=== PATIENT | male | born 1995 | race African-American/Black ===

== ENCOUNTER 2019-10-20 10:30 | Emergency (ER) | payer OTHER, SELFPAY ==
--- NOTE | 2019-10-20 10:27 | ED.SYNCOPE ---
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 He states that he was walking around work when he began to feel anxious and had a pressure come over him , he then began to have SOB and a panic attack. He reports that he walked to the back and asked for a outpatient coding specialist when he had a syncopal episode for a couple seconds. He notes that after he woke up that his symptoms had resolved, but that he spit up some pink phlegm which worried him. He also notes that he hasn't eaten yet today and that he has a hx of panic attacks. He denies any mouth pain, SILVER, epistaxis, nose pain, back pain, CP, or neck pain. MD complaint: loss of consciousness Onset (ago): minute(s) -: second(s) (a few) Prodromal symptoms: shortness of breath and other (anxious, had a pressure come over him , and had a panic attack) Context: other (while walking around work) Injuries sustained associated with event: none Current symptoms: other (spit up pink phlegm) History: other (anxiety with panic attacks) Related Data Home Medications Medication Instructions Recorded Confirmed No Home Medications 10/20/19 10/20/19 Allergies Allergy/AdvReac Type Severity Reaction Status Date / Time No Known Allergies Allergy Verified 10/20/19 10:38 Review of Systems Review of Systems: All systems reviewed & are unremarkable except as noted in HPI and below ENT: Denies epistaxis, Denies mouth pain, Denies nose pain and Reports other (spit up pink phlegm) Cardiovascular: Cardiovascular: Denies chest pain Respiratory: Respiratory: Reports dyspnea (resolved) Musculoskeletal: Musculoskeletal: Denies back pain and Denies neck pain Neurologic: Reports syncope (for a few seconds - resolved) and Denies headache(s) Psychiatric: Psychiatric: Reports anxiety (resolved), Reports panic attacks (resolved) and Reports other (had a pressure come over him - resolved) [facility] Past Medical History Medical History (Updated 10/20/19 @ 11:47 by Sanaz Luong MD) Anxiety Panic attacks Surgical History Surgical History (Updated 10/20/19 @ 11:03 by Harsh Christopher) No history of previous surgery Social History Social History (Updated 10/20/19 @ 11:03 by Harsh hCristopher) Smoking status: Former smoker Substance use: current Substance use type: marijuana Exam Const: General: cooperative, no acute distress and alert Nutritional Appearance: well nourished Orientation/consciousness: patient oriented x3 Limitations: no limitations HENMT: Mouth: Yes lip normal and Yes moist mucous membranes Resp: Effort & Inspection: normal respiratory effort Auscultation: clear to auscultation bilaterally Cardio: Rate: regular rate Rhythm: regular rhythm GI: GI Palp: Yes Soft to palpation and No Tenderness to palpation present (GI) Auscultation: normal bowel sounds Skin: General skin exam: normal color Neuro: General: patient oriented x3 Cognition (Neuro): normal cognition Speech: normal speech Extrem: General: normal to inspection, full ROM and no clubbing, cyanosis or edema Psych: Mental Status: mental status grossly normal Affect: normal affect Attitude: cooperative Course Course Emergency Course: Patient with normal examination and normal vitals in the emergency department. Patient with prior history of panic attacks. Patient with symptoms of hyperventilation immediately preceding his syncopal episode. Patient appropriate for discharge home and ongoing outpatient care. Vital Signs Vital signs: Vital Signs Pulse Rate 75 10/20/19 10:35 Respiratory Rate 16 10/20/19 10:35 Blood Pressure 131/87 10/20/19 10:35 Pulse Oximetry 97 10/20/19 10:35 Pulse Rate 75
[2019-10-20 10:35] VITALS: BP 131/87; PULSE 75; RESP 16; O2SAT 97
[2019-10-20 11:44] VITALS: BP 112/65; PULSE 76; RESP 20; O2SAT 100
[2019-10-20 12:14] VITALS: BP 127/68; PULSE 93; RESP 20; O2SAT 100
== END 2019-10-20 12:18 | disposition home or self-care (01) ==
PROVIDERS: Emergency Provider Emergency Medicine
DX: R06.4 Hyperventilation (principal); R55 Syncope and collapse; F41.0 Panic disorder [episodic paroxysmal anxiety]; Z87.891 Personal history of nicotine dependence
CPT/HCPCS: 99281

== ENCOUNTER 2019-12-15 06:34 | Emergency (ER) | payer OTHER, SELFPAY ==
[2019-12-15 06:43] VITALS: BP 118/77; PULSE 68; RESP 19; TEMP 36.6; O2SAT 99
[2019-12-15 07:06] LABS: Basophils Absolute Auto 0.1 K/mm3 (0.0-0.1); Basophils Percent Auto 0.9 % (0.2-1.2); Eosinophils Absolute Auto 0.1 K/mm3 (0-0.3); Eosinophils Percent Auto 1.7 % (0-4.4); Hematocrit 48.4 % (42.0-52.0); Hemoglobin 15.7 g/dL (14.0-18.0); Immature Granulocyte Absolute 0.02 K/mm3 (0.00-0.031); Immature Granulocyte Percent A 0.4 % (0-0.5); Lymphocytes Percent Auto 33.9 % (18.3-44.2); Mean Corpuscular HGB Conc 32.4 g/dl (32-36); Mean Corpuscular Hemoglobin 29.8 pg (26-34); Mean Platelet Volume 9.8 fl (7.4-10.4); Monocytes Absolute Auto 0.5 K/mm3 (0.1-0.6); Neutrophils Absolute Auto 2.8 K/mm3 (1.3-6.7); Neutrophils Percent Auto 53.1 % (45.5-73.1); Platelet Count Result 204 k/mm3 (150-375); Red Blood Count 5.26 M/mm3 (4.6-6.20); Red Cell Distribution Width 14.1 % (11.5-14.5); White Blood Count 5.3 K/mm3 (4.5-10.0)
[2019-12-15 07:13] VITALS: BP 116/74; PULSE 53; RESP 30; O2SAT 100
[2019-12-15 07:17] LABS: Blood Urea Nitrogen 11 mg/dL (9-20); Calcium 9.4 mg/dL (8.4-10.2); Carbon Dioxide 28 mmol/L (22-30); Chloride 105 mmol/L (98-107); Estimated CRCL calculation 137 ml/min; Estimated Glomerular Filt Rate > 60; Glucose 91 mg/dL (75-110); Potassium 4.3 mmol/L (3.4-5.0); Sodium 138 mmol/L (137-145)
--- NOTE | 2019-12-15 07:18 | ED.GENADULT ---
HPI - General Adult General Chief complaint: Anxiety Stated complaint: PANIC, N/V, SOB Time Seen by Provider: 12/15/19 06:40 Source: patient and family Mode of arrival: ambulatory Limitations: no limitations History of Present Illness HPI narrative: 24-year-old with no major medical problems presents to the ER with complaints of nausea vomiting followed by panic attack patient states that he ate a large of junk food last night woke up this morning with stomach upset followed by nausea and vomiting. However his girlfriend reports that he has been throwing up quite frequently. He presently denies any chest pain, shortness of breath, abdominal pain. Onset (ago): hour(s) (1) Severity: moderate Quality: aching Pain Consistency: now resolved Relieving factors: none Exacerbating factors: none Associated symptoms: denies other symptoms Related Data Home Medications Medication Instructions Recorded Confirmed ondansetron 12/15/19 Allergies Allergy/AdvReac Type Severity Reaction Status Date / Time No Known Allergies Allergy Verified 12/15/19 06:49 Review of Systems Review of Systems: All systems reviewed & are unremarkable except as noted in HPI and below Constitutional: Constitutional: Reports no additional constitutional complaints Eyes: Eyes: Reports no additional eye complaints ENT: Reports system reviewed and no additional complaints, except as documented Cardiovascular: Cardiovascular: Reports no additional cardiovascular complaints Respiratory: Respiratory: Reports no additional respiratory complaints Gastrointestinal: Gastrointestinal: Reports abdominal pain, Reports nausea and Reports vomiting Genitourinary: Genitourinary: Reports no additional male genitourinary complaints Musculoskeletal: Musculoskeletal: Reports no additional musculoskeletal complaints Neurologic: Reports system reviewed and no additional complaints, except as documented PMFSH Past Medical History Medical History Anxiety Panic attacks Surgical History Surgical History (Updated 10/20/19 @ 11:03 by Harsh Christopher) No history of previous surgery Social History Social History (Updated 10/20/19 @ 11:03 by Harsh Christopher) Smoking status: Former smoker Substance use: current Substance use type: marijuana Exam Narrative: Exam Narrative: GENERAL: Well-appearing, well-nourished, and in no acute distress. HEAD: Normocephalic, atraumatic. EYES: PERRLA and EOMI. ENT: Nares clear, Mucous membranes moist. NECK: Supple. CHEST: Clear to auscultation. No respiratory distress. HEART: Regular rate and rhythm. No murmur heard. Normal peripheral pulses. ABDOMEN: Soft, non tender, non distended, normal active bowel sounds. EXTREMITIES: Normal range of motion. No edema. SKIN: Warm, dry, no rash. NEURO: No focal deficits. Alert and oriented x3. PSYCH: Normal mood and affect. Course Course Emergency Course: Upon arrival patient was asymptomatic however since patient was complaining of recurrent nausea and vomiting heart rate do CBC and chemistry which came back unremarkable. Advised him to be strict with his diet continue Zofran as needed and follow-up with his primary doctor Vital Signs Vital signs: Vital Signs Temperature 36.6 C 12/15/19 06:43 Pulse Rate 68 12/15/19 06:43 Respiratory Rate 19 12/15/19 06:43 Blood Pressure 118/77 12/15/19 06:43 Pulse Oximetry 99 12/15/19 06:43 Temperature 36.6 C 12/15/19 06:43 Pulse Rate 53 L 12/15/19 07:13 Respiratory Rate 30 H 12/15/19 07:13 Blood Pressure 116/74 12/15/19 07:13 Pulse Oximetry 100 12/15/19 07:13 Medical Decision Making Vital Signs Vital Signs: Vital Signs Temperature 36.6 C 12/15/19 06:43 Pulse Rate 68 12/15/19 06:43 Respiratory Rate 19 12/15/19 06:43 Blood Pressure 118/77 12/15/19 06:43 Pulse Oximetry 99 12/15/19 06:43 Temperature 36.6 C 12/15/19 06:43 P
[2019-12-15 08:10] VITALS: BP 116/64; PULSE 53; RESP 28; O2SAT 100
== END 2019-12-15 08:11 | disposition home or self-care (01) ==
LOC: ANHED 07:56
PROVIDERS: Emergency Provider Family Medicine
DX: F41.9 Anxiety disorder, unspecified (principal); Z87.891 Personal history of nicotine dependence
CPT/HCPCS: 36415; 80048; 85025; 99283

== ENCOUNTER 2020-09-18 21:18 | Emergency (ER) | payer OTHER, SELFPAY ==
[2020-09-18 21:26] VITALS: BP 132/64; PULSE 64; RESP 18; TEMP 36.9; O2SAT 100
--- NOTE | 2020-09-18 22:52 | ED.EYEPROB ---
HPI - Eye Problem General Chief complaint: Eye Problems Stated complaint: chemical burn in eye Time Seen by Provider: 09/18/20 21:58 Source: patient Mode of arrival: ambulatory Limitations: no limitations History of Present Illness HPI Narrative: Patient is a 24-year-old male who presents complaining of right eye pain. He reports while at work this evening he had [employer] splash into eye as he was moving boxes. Eye was flushed at eye was station at work for 15 minutes per MDS. Patient continues to report irritation, denies visual changes or difficulties. Related Data Allergies Allergy/AdvReac Type Severity Reaction Status Date / Time No Known Allergies Allergy Verified 09/18/20 21:29 Review of Systems Review of Systems: Narrative: CONSTITUTIONAL: Denies fever, chills, or sweats. EYES: Right eye pain and irritation ENT: Denies rhinorrhea, congestion, sore throat, or otalgia. CARDIOVASCULAR: Denies chest pain, palpitations, or edema. RESPIRATORY: Denies cough or dyspnea. GASTROINTESTINAL: Denies abdominal pain, nausea, vomiting, or diarrhea. GENITOURINARY: Denies dysuria or hematuria. SKIN: Denies rash or itching. MUSCULOSKELETAL: Denies back pain, joint pain, or myalgia. NEUROLOGIC: Denies headache, numbness, dizziness, or weakness. PSYCHIATRIC: Denies anxiety or depression. PMFSH Past Medical History Medical History Anxiety Panic attacks Surgical History Surgical History No history of previous surgery Family History Family History Other No significant family history Social History Social History Smoking status: Former smoker Substance use: current Substance use type: marijuana Gender identity (if verbalized by the patient): Male Comments At the time of signature, I have reviewed and agree with nursing past medical, surgical, social, and family history unless otherwise noted. Please see nursing chart for further information. There is no relevant family history pertinent to the presenting complaint. Exam Narrative: Exam Narrative: GENERAL: Well-appearing, well-nourished, and in no acute distress. HEAD: Normocephalic, atraumatic. EYES: EOMI. sclera mildly injected, conjunctiva normal. ENT: Mucous membranes pink and moist. CHEST: No respiratory distress. HEART: Regular rate and rhythm. EXTREMITIES: Normal range of motion. SKIN: Warm, dry, no rash. NEURO: No focal deficits. Alert and oriented x3. Gait steady. PSYCH: Normal affect. No signs of depression or anxiety. Course Vital Signs Vital signs: Vital Signs Temperature 36.9 C 09/18/20 21:26 Pulse Rate 64 09/18/20 21:26 Respiratory Rate 18 09/18/20 21:26 Blood Pressure 132/64 09/18/20 21:26 Pulse Oximetry 100 09/18/20 21:26 Temperature 36.9 C 09/18/20 21:26 Pulse Rate 64 09/18/20 21:26 Respiratory Rate 18 09/18/20 21:26 Blood Pressure 132/64 09/18/20 21:26 Pulse Oximetry 100 09/18/20 21:26 Reviewed. Patient has been instructed to follow-up with his PCP regarding his blood pressure. Procedures Other Procedure Procedure 1: Other Procedure: Right eye was anesthetized with 1 drop of tetracaine and anesthesia was achieved. The eye was flushed with eyewash. Cornea was dyed with fluorescein and 1 small abrasions or ulcerations were noted. Patient tolerated procedure well. MDM - Eye Problem MDM Narrative Medical decision making narrative: Patient appears to have small corneal abrasion to right eye. Patient encouraged to follow-up with ophthalmology tomorrow. Patient started on erythromycin ointment and instructed on when to return to the emergency department. Patient is stable for discharge home with outpatient follow-up as discussed. Differential Diagnosis Differentia
== END 2020-09-18 23:12 | disposition home or self-care (01) ==
PROVIDERS: Emergency Provider Nurse Practitioner
DX: S05.01XA Injury of conjunctiva and corneal abrasion without foreign body, right eye, initial encounter (principal); Z87.891 Personal history of nicotine dependence; X58.XXXA Exposure to other specified factors, initial encounter
CPT/HCPCS: 99283; A9270

== ENCOUNTER 2021-02-22 18:51 | Emergency (ER) | payer OTHER, SELFPAY ==
[2021-02-22 20:15] VITALS: BP 146/68; PULSE 73; RESP 20; TEMP 36.7; O2SAT 100
--- NOTE | 2021-02-22 20:49 | ED.GENADULT ---
HPI - General Adult General Chief complaint: Skin/Abscess/Foreign Body Stated complaint: rash Time Seen by Provider: 02/22/21 20:42 Source: RN notes reviewed History of Present Illness HPI narrative: Patient presents emergency department from work for allergic reaction. Patient states approximately 1730 he noticed an area of erythema that is pruritic and swollen on his right anterior bicep he states that since that time. Has improved but continues to have erythema is not sure what he rubbed up against or touch that area he denies any other areas of rash he denies any swelling of the lips or tongue denies any shortness of breath Related Data Allergies Allergy/AdvReac Type Severity Reaction Status Date / Time No Known Allergies Allergy Verified 02/22/21 20:43 Review of Systems Review of Systems: Narrative: Gen.: Denies fevers or chills ENT: Denies swelling of the lips or tongue Respiratory: Denies shortness of breath or cough CV: Denies chest pain GI: Denies abdominal pain nausea, Musculoskeletal: Pain Neuro: Denies weakness Skin: See HPI Except as documented, all other systems reviewed and negative [facility] Past Medical History Medical History Anxiety Panic attacks Surgical History Surgical History No history of previous surgery Family History Family History Other No significant family history Social History Social History Smoking status: Former smoker Substance use: current Substance use type: marijuana Gender identity (if verbalized by the patient): Male Exam Narrative: Exam Narrative: APPEARANCE: No acute distress, nontoxic, resting in bed EYES: EOMI HEENT: Normocephalic, atraumatic, OMM no swelling of the lips or tongue RESPIRATORY: No respiratory distress Clear to auscultation bilaterally with no rhonchi wheezing or rales. CARDIOVASCULAR: Regular rate and rhythm without murmurs rubs or gallops. MUSCULOSKELETAl: Moves all extremities. No clubbing, cyanosis or edema. NEURO: Awake and alert. Following commands, speech normal, no focal deficits SKIN:: Warm, dry. The right anterior bicep has an area of erythema with several small raised areas consistent with contact dermatitis allergic reaction no other rash seen on the remainder of the arm or the rest of the body PSYCHIATRIC: Normal affect/mood, Course Course Emergency Course: Discussed with patient results of workup and diagnosis. Discussed need for follow-up with primary care, proper use of medication, and reasons to return to the emergency department. Patient understands and agrees to current treatment plan Vital Signs Vital signs: Vital Signs Temperature 98.1 F 02/22/21 20:15 Pulse Rate 73 02/22/21 20:15 Respiratory Rate 20 02/22/21 20:15 Blood Pressure 146/68 H 02/22/21 20:15 Pulse Oximetry 100 02/22/21 20:15 Temperature 98.1 F 02/22/21 20:15 Pulse Rate 73 02/22/21 20:15 Respiratory Rate 20 02/22/21 20:15 Blood Pressure 146/68 H 02/22/21 20:15 Pulse Oximetry 100 02/22/21 20:15 Medical Decision Making Vital Signs Vital Signs: Vital Signs Temperature 98.1 F 02/22/21 20:15 Pulse Rate 73 02/22/21 20:15 Respiratory Rate 20 02/22/21 20:15 Blood Pressure 146/68 H 02/22/21 20:15 Pulse Oximetry 100 02/22/21 20:15 Temperature 98.1 F 02/22/21 20:15 Pulse Rate 73 02/22/21 20:15 Respiratory Rate 02/22/21 20:15 Blood Pressure 146/68 H 02/22/21 20:15 Pulse Oximetry 100 02/22/21 20:15 Discharge Plan Discharge Clinical Impression: Contact dermatitis Patient Disposition: Home, Self-Care Condition: Stable Instructions: Antibiotic Form, Contact Dermatitis (ED) Additional Instructions: Return for increasing size of rash swelling of lips or to
[2021-02-22] MEDS: LORATADINE 10 MG TABLET PO (21:00)
[2021-02-22] MEDS: predniSONE 20 MG TABLET 60 MG PO (21:00)
== END 2021-02-22 21:19 | disposition home or self-care (01) ==
PROVIDERS: Emergency Provider Emergency Medicine
DX: L23.9 Allergic contact dermatitis, unspecified cause (principal); Z87.891 Personal history of nicotine dependence
CPT/HCPCS: 99283; A9270; J7512

== ENCOUNTER 2021-05-02 16:36 | Emergency (ER) | payer OTHER, SELFPAY ==
[2021-05-02] VITALS (10 sets, daily range): BP systolic 92–152; BP diastolic 59–76; PULSE 60–83; RESP 14–18; TEMP 36.5–37; O2SAT 98–100
[2021-05-02 17:11] LABS: Basophils Absolute Auto 0.1 K/mm3 (0.0-0.1); Basophils Percent Auto 1.2 % (0.2-1.2); Eosinophils Absolute Auto 0.1 K/mm3 (0-0.3); Eosinophils Percent Auto 1.8 % (0-4.4); Hemoglobin 14.9 g/dL (14.0-18.0); Immature Granulocyte Absolute 0.02 K/mm3 (0.00-0.031); Immature Granulocyte Percent A 0.4 % (0-0.5); Lymphocytes Absolute Auto 1.58 K/mm3 (0.9-3.2); Lymphocytes Percent Auto 30.8 % (18.3-44.2); Mean Corpuscular HGB Conc 33.9 g/dl (32-36); Mean Corpuscular Hemoglobin 30.3 pg (26-34); Mean Corpuscular Volume 89.6 fl (80-100); Mean Platelet Volume 9.5 fl (7.4-10.4); Monocytes Absolute Auto 0.6 K/mm3 (0.1-0.6); Monocytes Percent Auto 12.5 % (2.6-8.5); Neutrophils Absolute Auto 2.7 K/mm3 (1.3-6.7); Neutrophils Percent Auto 53.3 % (45.5-73.1); Platelet Count Result 220 k/mm3 (150-375); Red Blood Count 4.91 M/mm3 (4.6-6.20); Red Cell Distribution Width 13.2 % (11.5-14.5); White Blood Count 5.1 K/mm3 (4.5-10.0)
[2021-05-02 17:18] LABS: Alanine Aminotransferase 30 U/L (4-50); Albumin Level 4.7 g/dL (3.5-5.1); Alkaline Phosphatase 42 U/L (38-126); Anion Gap 7 mmol/L (8-16); Aspartate Amino Transferase 37 U/L (17-59); Bilirubin,Total 0.4 mg/dL (0.2-1.3); Blood Urea Nitrogen 14 mg/dL (9-20); Calcium 9.8 mg/dL (8.4-10.2); Carbon Dioxide 30 mmol/L (22-30); Chloride 107 mmol/L (98-107); Estimated CRCL calculation 120 ml/min; Estimated Glomerular Filt Rate > 60; Glucose 95 mg/dL (65-110); Lipase 158 U/L (23-300); Potassium 4.5 mmol/L (3.4-5.0); Sodium 144 mmol/L (137-145)
[2021-05-02] MEDS: ONDANSETRON INJ 4 MG/2 ML VIAL IV PUSH (17:51)
[2021-05-02] MEDS: SODIUM CHLORIDE 0.9% IV 1,000 ML 999 ML IV CONT (17:51)
--- NOTE | 2021-05-02 18:07 | ED.GENADULT ---
HPI - General Adult General Chief complaint: Nausea/Vomiting/Diarrhea Stated complaint: Vomiting Time Seen by Provider: 05/02/21 17:18 Source: patient Mode of arrival: ambulatory Limitations: no limitations History of Present Illness HPI narrative: 25-year-old with no major medical problems here with complaints of nausea, vomiting x3 since this morning he has noticed some blood. He denies any abdominal pain. No fever or chills. No other members of the family is sick. Onset (ago): day(s) (1) Severity: mild Relieving factors: none Exacerbating factors: none Associated symptoms: denies other symptoms Related Data Home Medications Medication Instructions Recorded Confirmed ondansetron 05/02/21 Allergies Allergy/AdvReac Type Severity Reaction Status Date / Time No Known Allergies Allergy Verified 05/02/21 17:44 Review of Systems Review of Systems: All systems reviewed & are unremarkable except as noted in HPI and below Constitutional: Constitutional: Reports no additional constitutional complaints Eyes: Eyes: Reports no additional eye complaints ENT: Reports system reviewed and no additional complaints, except as documented Cardiovascular: Cardiovascular: Reports no additional cardiovascular complaints Respiratory: Respiratory: Reports no additional respiratory complaints Gastrointestinal: Gastrointestinal: Reports as per HPI Musculoskeletal: Musculoskeletal: Reports no additional musculoskeletal complaints Neurologic: Reports system reviewed and no additional complaints, except as documented PMFSH Past Medical History Medical History Anxiety Panic attacks Surgical History Surgical History No history of previous surgery Family History Family History Other No significant family history Social History Social History Smoking status: Former smoker Substance use: current Substance use type: marijuana Gender identity (if verbalized by the patient): Male Exam Narrative: GENERAL: Well-appearing, well-nourished, and in no acute distress. HEAD: Normocephalic, atraumatic. EYES: PERRLA and EOMI. NECK: Supple. CHEST: Clear to auscultation. No respiratory distress. HEART: Regular rate and rhythm. No murmur heard. Normal peripheral pulses. ABDOMEN: Soft, nontender, nondistended, normal active bowel sounds. EXTREMITIES: Normal range of motion. No edema. SKIN: Warm, dry, no rash. NEURO: No focal deficits. Alert and oriented x3. PSYCH: Normal mood and affect. Course Course Emergency Course: Patient was comfortably laying on the bed in no discomfort had no further episodes of nausea or vomiting. Informed him about his lab work. Patient requesting for day of. Vital Signs Vital signs: Vital Signs Temperature 37.0 C 05/02/21 16:49 Pulse Rate 83 05/02/21 16:49 Respiratory Rate 18 05/02/21 16:49 Blood Pressure 131/70 05/02/21 16:49 Pulse Oximetry 100 05/02/21 16:49 Temperature 37.0 C 05/02/21 16:49 Pulse Rate 73 05/02/21 17:47 Respiratory Rate 16 05/02/21 17:47 Blood Pressure 152/72 H 05/02/21 17:47 Pulse Oximetry 99 05/02/21 17:47 Medical Decision Making Vital Signs Vital Signs: Vital Signs Temperature 37.0 C 05/02/21 16:49 Pulse Rate 83 05/02/21 16:49 Respiratory Rate 18 05/02/21 16:49 Blood Pressure 131/70 05/02/21 16:49 Pulse Oximetry 100 05/02/21 16:49 Temperature 37.0 C 05/02/21 16:49 Pulse Rate 73 05/02/21 17:47 Respiratory Rate 16 05/02/21 17:47 Blood Pressure 152/72 H 05/02/21 17:47 Pulse Oximetry 99 05/02/21 17:47 Lab Data Result diagrams: 05/02/21 16:59 05/02/21 16:59 Labs: Lab Results 05/02/21 05/02/21 Range/Units 16:59 16:59 WBC 5.1 (4.5-10.
[2021-05-02 18:54] LABS: Add Urine Microscopic? YES; Appearance Urine Clear (Clear); Bacteria Urine Trace /hpf; Bilirubin Urine Negative (Negative); Blood Urine Negative (Negative); Color Urine Yellow (Yellow); Glucose Urine UA Negative (Negative); Ketones Urine Negative (Negative); Leukocyte Esterase Ur Negative LEU/UL (Negative); Mucus Urine Few /lpf; Nitrate Urine Negative (Negative); Protein Urine 1+ mg/dL (Negative); RBC Urine 0-2 /hpf (0-2); Specific Grav Ur 1.027 (1.001-1.035); WBC Urine 0-3 /hpf
== END 2021-05-02 19:15 | disposition home or self-care (01) ==
LOC: ANHED 18:18
PROVIDERS: Emergency Provider Family Medicine
DX: R11.10 Vomiting, unspecified (principal); Z87.891 Personal history of nicotine dependence
CPT/HCPCS: 36415; 80053; 81001; 83690; 85025; 96361; 96374; 99284; J2405; J7030